=== PATIENT | male | born 1995 | race Caucasian/White ===

== ENCOUNTER 2016-09-25 12:23 | Outpatient (CLI) | payer OTHER | END 2016-09-25 12:24 | disposition home or self-care (01) | DX: J93.83 Other pneumothorax (principal) ==

== ENCOUNTER 2016-11-18 19:00 | Outpatient (CLI) | payer BC, OTHER ==
--- NOTE | 2016-11-19 12:25 | XRAY Report ---
TWO VIEW CHEST: 11/18/2016 CLINICAL INDICATION: Right pleuritic chest pain, history of pleurodectomy and lobectomy. COMPARISON: 09/25/2016. FINDINGS: Frontal and lateral views of the chest demonstrate a normal cardiac silhouette. There is a 2.5 cm right apical pneumothorax. The left lung is clear. No significant mediastinal shift. IMPRESSION: A 2.5 CM RIGHT APICAL PNEUMOTHORAX. CRITICAL RESULT: RESULTS CALLED TO DR. MILNER ON 11/19/2016 AT 1420 HOURS. JOB #: [id number] JOB #: [id number] MTDNaomi
--- NOTE | 2016-11-19 12:28 | XRAY Report ---
APICAL LORDOTIC VIEW OF THE CHEST: 11/18/2016 CLINICAL INDICATION: Right-sided chest pain. FINDINGS: Apical lordotic view of the chest demonstrates a right pneumothorax. The cardiac silhouette is within normal limits. The lungs are otherwise clear. No effusion is seen. No left pneumothorax is present. IMPRESSION: RIGHT APICAL PNEUMOTHORAX. CRITICAL RESULT: RESULTS CALLED TO DR. MILNER ON 11/19/2016 AT 1420 HOURS. JOB #: [id number] JOB #: [id number] [facility]
== END 2016-11-18 19:01 | disposition home or self-care (01) ==
LOC: DI 19:00
PROVIDERS: ATTEND Family Medicine
DX: J93.9 Pneumothorax, unspecified (principal)
CPT/HCPCS: 71020; 71021